=== PATIENT | female | born 1945 | race Two or more races ===

== ENCOUNTER 2022-01-22 08:22 | Day surgery (SDC) | payer OTHER ==
[~2022-01-22] VITALS: Ht 157.5 cm; Wt 77.1 kg
== END 2022-01-22 19:15 | disposition home or self-care (01) ==
LOC: CIR.AMB 08:22
PROVIDERS: ATTEND Obstetrics & Gynecology
DX: N84.0 Polyp of corpus uteri (principal); Z20.822 Contact with and (suspected) exposure to COVID-19; I10 Essential (primary) hypertension